=== PATIENT | male | born 1940 ===

== ENCOUNTER 2017-01-02 12:12 | Emergency (ER) | payer OTHER ==
[~2017-01-02] VITALS: Wt 70.0 kg
[2017-01-02] MEDS ORDERED: LIDOCAINE 1%/EPI 30 ML INJ INJ STA (12:21)
[2017-01-02] MEDS ORDERED: DEXTROSE 50% 50 ML SYRINGE IV STA (12:25)
[2017-01-02] MEDS ORDERED: LIDOCAINE 2% (MDV) 20 ML INJ INJ ONE (12:30)
[2017-01-02] MEDS ORDERED: CLOP75TA27 PO (12:54)
[2017-01-02] MEDS ORDERED: LOSA50TA6 PO (12:54)
[2017-01-02] MEDS ORDERED: METO-429 PO (12:55)
[2017-01-02] MEDS ORDERED: ISOS30TA5 PO (12:55)
[2017-01-02] MEDS ORDERED: ATOR40TA68 PO (12:55)
[2017-01-02 13:01] LABS: ADD SCAN DIFF NO
[2017-01-02 13:02] LABS: ABNORMAL IP MESSAGE 1; BASOPHIL # 0.1 10^3/ul (0.0-0.1); BASOPHILS % 0.8 % (0.0-2.0); EOSINOPHILS # 0.1 10^3/ul (0.0-0.5); EOSINOPHILS % 1.7 % (0.0-7.0); HEMATOCRIT 34.2 % (42.0-52.0); HEMOGLOBIN 10.6 g/dl (14.0-18.0); LYMPHOCYTES # 0.5 10^3/ul (0.8-2.9); MEAN CORPUSCULAR HEMOGLOBIN 29.9 pg (29.0-33.0); MEAN CORPUSCULAR VOLUME 96.6 fl (82.0-101.0); MEAN PLATELET VOLUME 11.3 fl (7.4-10.4); MONOCYTE # 0.7 10^3/ul (0.3-0.9); MONOCYTES % 10.6 % (0.0-11.0); NEUTROPHIL # 5.1 10^3/ul (1.6-7.5); NEUTROPHILS % 79.6 % (39.0-77.0); PLATELET COUNT 185 10^3/UL (140-415); RED BLOOD COUNT 3.54 10^6/ul (4.70-6.10); RED CELL DISTRIBUTION WIDTH 18.9 % (11.5-14.5); WHITE BLOOD COUNT 6.4 10^3/ul (4.8-10.8)
[2017-01-02] MEDS ORDERED: WARF1TAB47 PO (13:07)
--- NOTE | 2017-01-02 13:14 | ERA ---
ER Documentation Chief Complaint Date/Time DATE: 01/02/17 TIME: 13:08 Chief Complaint bleeding to left fistula site 3 hrs after dialysis today. no cp. no sob HPI 76-year-old man brought in by EMS from home for bleeding left upper extremity arteriovenous fistula. Patient just completed hemodialysis and states the bleeding began at the dialysis center and then continued and got worse at home. He states this happens almost every week but not usually this bad. Upon EMS arrival he was found somewhat confused and hypoglycemia, he was given dextrose with improvement in mental status. Patient denies fevers or chills, no paresis or paresthesias, no vomiting or diarrhea. Patient received his complete dialysis today. Patient was transported here by EMS without further complications. ROS All systems reviewed and are negative except as per history of present illness. Medications Home Meds Reported Medications Warfarin Sodium* (Coumadin*) Unknown Strength Tablet, PO DAILY, TAB pt dosnt know dosage pharm has 5mg on file but its not the current dosage cant get ahold of coumadin clinic 01/02/17 Metoprolol Tartrate* (Lopressor*) 50 Mg Tab, 50 MG PO BID, #60 TAB 01/02/17 Isosorbide Mononitrate* (Isosorbide Mononitrate*) 30 Mg Tab.er.24h, 30 MG PO DAILY, TAB 01/02/17 Atorvastatin* (Atorvastatin*) 40 Mg Tablet, 40 MG PO QHS, #30 TAB 01/02/17 Clopidogrel Bisulfate (Clopidogrel) 75 Mg Tablet, 75 MG PO DAILY, #30 TAB 01/02/17 Losartan Potassium* (Losartan Potassium*) 50 Mg Tablet, 50 MG PO DAILY, TAB 01/02/17 Allergies Allergies: Coded Allergies: No Known Allergy (Unverified , 01/02/17) PMhx/Soc Hypertension, atrial fibrillation, end-stage kidney disease hemodialysis dependent, dyslipidemia History of Surgery: Yes (triple bypass sx, left and right upper arm av fistula) Anesthesia Reaction: No Hx Neurological Disorder: No Hx Respiratory Disorders: No Hx Cardiac Disorders: Yes (HTN, HYPERLIPIDEMIA) Hx Psychiatric Problems: No Hx Miscellaneous Medical Probl: Yes (DM) Hx Alcohol Use: No Hx Substance Use: No Hx Tobacco Use: No Smoking Status: Never smoker FmHx Family History: No diabetes Physical Exam Vitals Vital Signs Date Time Temp Pulse Resp B/P Pulse Ox O2 Delivery O2 Flow Rate FiO2 01/02/17 14:30 98.9 110 18 133/102 96 Room Air 01/02/17 13:20 98.9 112 20 107/83 95 Room Air 01/02/17 12:16 98.9 88 20 97 Physical Exam GENERAL: Well-developed, well-nourished, demented, afebrile HEENT: Moist mucous membranes, pink conjunctiva, no cervical spine tenderness or step-off deformities, no goiter, no jaundice or icterus, extraocular movements intact without pain. No submandibular induration, and no pharyngeal erythema NEURO: Alert and oriented 2, no focal deficits or facial asymmetry, pupils equal round reactive to light, able to answer simple questions and follow simple commands CARDIAC: Tachycardic and irregular, no murmurs rubs or LUNGS: Clear bilaterally no wheezing crackles or stridor ABDOMEN: Soft nontender, no guarding, no rigidity, no rebound, no psoas sign no obturator sign. Normoactive bowel sounds SKIN: Warm and dry to touch, small pulsatile bleed to the AV fistula at the left upper extremity. EXTREMITIES: No clubbing cyanosis or edema, calves are bilaterally symmetrical, no Homans sign, no popliteal cord sign. Distal pulses equal and bilateral PSYCH: Irritated Result Diagram: 01/02/17 1220 01/02/17 1220 Results 24 hrs Laboratory Tests Test 01/02/17 12:20 01/02/17 12:26 White Blood Count 6.410^3/ul Red Blood Count 3.5410^6/ul Hemoglobin 10.6g/dl Hematocrit 34.2% Mean Corpuscular Volume 96.6fl Mean Corpuscular Hemoglobin 29.9pg Mean Corpuscular Hemoglobin Concent 31.0g/dl Red Cell Distribution Width 18.9% Platelet Count 22629^3/UL Mean Platelet Volume 11.3fl Neutrophils % 79.6% Lymphocytes % 7.0% Monocytes % 10.6% Eosinophils % 1.7% Basophils % 0.8% Nucleated Red Blood Cells % 0.0/100WBC Neutrophils # 5.110^3/ul Lymphocytes # 0.510^3/ul Monocytes # 0.710^3/ul Eosinophils # 0.110^3/ul Basophils # 0.110^3/ul Nucleated Red Blood Cells # 0.010^3/ul Prothrombin Time 54.6Sec Prothrombin Time Ratio 4.3 INR International Normalized Ratio 5.98 Activated Partial Thromboplast Time 53.6Sec Sodium Level 136mmol/L Potassium Level 4.2mmol/L Chloride Level 97mmol/L Carbon Dioxide Level 28mmol/L Anion Gap 15 Blood Urea Nitrogen 22mg/dl Creatinine 3.86mg/dl Glucose Level 122mg/dl Calcium Level 10.1mg/dl Total Bilirubin 0.3mg/dl Direct Bilirubin 0.00mg/dl Indirect Bilirubin 0.3mg/dl Aspartate Amino Transf (AST/SGOT) 39IU/L Alanine Aminotransferase (ALT/SGPT) 35IU/L Alkaline Phosphatase 202IU/L Troponin I 0.073ng/ml Total Protein 7.7g/dl Albumin 3.8g/dl Globulin 3.90g/dl Albumin/Globulin Ratio 0.97 Lipase 159U/L Bedside Glucose 122mg/dL Current Medications Medications (Trade) Dose Ordered Sig/Sonia Route PRN Reason Start Time Stop Time Status Last Admin Dose Admin Lidocaine/ Epinephrine (Xylocaine 1%/ Epi) 30 ml ONCE STAT INJ 01/02/17 12:21 01/02/17 12:23 DC Dextrose (D50w Syringe) 50 ml ONCE STAT IV 01/02/17 12:25 01/02/17 12:26 DC Lidocaine (Xylocaine 2% (Mdv) 20 ml) 20 ml ONCE ONCE INJ 01/02/17 12:30 01/02/17 12:31 DC Clonidine (Catapres) 0.1 mg ONCE ONCE PO 01/02/17 15:00 01/02/17 15:01 DC Procedures/[facility] IV line was established patient was placed on undergraduate advisor rhythm strip revealed a irregular tachycardia at about 120 bpm. Patient was afebrile. EKG performed, read by me revealed an atrial fibrillation with rapid ventricular rate at 114 bpm, normal axis, narrow QRS complex, no concerning ST elevations or depressions noted. Chest X-ray 1V Interpreted by me: Soft Tissue: No acute abnormalities Bones: No acute abnormalities Mediastinum/Cardiac Silhouette/Lungs: Positive cardiomegaly and sternotomy wires, no acute infiltrates. CBC and electrolytes are normal, liver function tests are normal, troponin was negative, coagulation profile field and supratherapeutic INR level. Patient did not want sutures placed of the left upper extremity to help control the AV hemorrhage. I applied tincture of benzoin to the skin around the bleeding fistula and then applied multiple Steri-Strips across this punctate hemorrhage with some control of the bleeding. Large bulky gauze dressing was then applied. Patient's blood sugar was rechecked and was within normal limits. For hypertension I administered clonidine 0.1 mg p.o. Observation Note: Time: 5-1/2 hours Family Hx: No Hypertension Evaluation: Multiple exams showed improving symptoms and no evidence of decreasing mental status, hypoglycemia, or hypertensive emergency. AV fistula hemorrhage has also been controlled. I spoke to [facility] [place] accepting physician regarding the patient's presentation , symptomatology, and refusal of left upper extremity AV fistula suture placement. He kindly accepted the patient. [place] authorization number is [id number] Departure Diagnosis: Primary Impression: Hemorrhage of arteriovenous fistula Qualified Code: T82.838A - Hemorrhage of arteriovenous fistula, initial encounter Additional Impressions: Hypoglycemia Atrial fibrillation with RVR End stage kidney disease Hypertension Qualified Code: I10 - Essential hypertension Condition: NIC Luong MD January 02, 2017 13:14
[2017-01-02 13:21] LABS: INR 5.98; PARTIAL THROMBOPLASTIN TIME 53.6 Sec (25.0-35.0); PROTIME 54.6 Sec (12.2-14.2); PT RATIO 4.3
[2017-01-02 13:30] LABS: ALBUMIN 3.8 g/dl (3.3-4.9); ALBUMIN/GLOBULIN RATIO 0.97; BILIRUBIN,INDIRECT 0.3 mg/dl (0-1.1); BILIRUBIN,TOTAL 0.3 mg/dl (0.2-1.3); CALCIUM 10.1 mg/dl (8.4-10.2); CREATININE 3.86 mg/dl (0.61-1.24); POTASSIUM 4.2 mmol/L (3.5-5.1); TOTAL PROTEIN 7.7 g/dl (6.1-8.1)
[2017-01-02 13:39] LABS: TROPONIN-I 0.073 ng/ml (0.00-0.12)
--- NOTE | 2017-01-02 13:40 | RADRPT ---
PROCEDURE: XR Chest. CLINICAL INDICATION: Chest pain. TECHNIQUE: Single frontal chest x-ray. The evaluation is essentially a lordotic view. COMPARISON: None available. FINDINGS: There has been prior median sternotomy. There is mild elevation of the right hemidiaphragm. There ar e atherosclerotic changes of the aorta. The cardiomediastinal silhouette is enlarged. The lungs are clear without focal consolidation, effusion, or pneumothorax. There are no acute osseous abnormali ties. IMPRESSION: 1. Cardiomegaly. 2. Vascular calcifications consistent with atherosclerosis. RPTAT: GG .Edwar Gottlieb MD, Date Time Electronically viewed and signed by .Edwar Gottlieb MD, on 01/02/2017 13:39 .P/
[2017-01-02 16:03] VITALS: BP 136/96; PULSE 108; RESP 25; TEMP 98
== END 2017-01-02 16:03 | disposition short-term general hospital (02) ==
LOC: E/R 12:12
DX: T82.838A Hemorrhage due to vascular prosthetic devices, implants and grafts, initial encounter (principal); E11.65 Type 2 diabetes mellitus with hyperglycemia; I12.0 Hypertensive chronic kidney disease with stage 5 chronic kidney disease or end stage renal disease; N18.6 End stage renal disease; I48.91 Unspecified atrial fibrillation; E11.22 Type 2 diabetes mellitus with diabetic chronic kidney disease; Y82.8 Other medical devices associated with adverse incidents; Z79.01 Long term (current) use of anticoagulants; Z99.2 Dependence on renal dialysis
CPT/HCPCS: 71010; 80053; 82962; 83690; 84484; 85025; 85610; 85730; 93005